=== PATIENT | male | born 1995 | race African-American/Black ===

== ENCOUNTER 2017-06-20 21:16 | Inpatient (IN) | payer OTHER ==
[~2017-06-20] VITALS: Ht 182.9 cm; Wt 106.6 kg
[2017-06-20 21:36] LABS: BASOPHIL (%) 0.6 % (0-1); BASOPHIL COUNT 0.1 K/uL (0-0.1); EOSINOPHIL (%) 0.6 % (0-5); EOSINOPHIL COUNT 0.1 K/uL (0-0.3); HEMATOCRIT 40.5 % (38.0-50.0); HEMOGLOBIN 14.1 G/DL (12.5-16.6); IMMATURE GRANULOCYTE (%) 0.5 % (0.0-0.7); LYMPHOCYTE (%) 31.1 % (15-42); MCH 33.5 PG (29.0-34.0); MCHC 34.8 G/DL (30.0-36.0); MCV 96.2 FL (86-99); MONOCYTE (%) 5.9 % (3-12); NEUTROPHIL (%) 61.3 % (45-76); NEUTROPHIL COUNT 9.9 K/uL (1.8-6.4); PLATELET COUNT 302 K/uL (156-360); RBC DIS.WIDTH-CV 11.2 % (11.8-14.6); RBC DIS.WIDTH-SD 39.3 % (39-53); RED BLOOD COUNT 4.21 M/uL (4.00-5.50); WHITE BLOOD COUNT 16.2 K/uL (4.1-10.2)
[2017-06-20 21:48] LABS: AMYLASE 61 IU/L (1-118); CHLORIDE 104 mEq/L (99-109); POTASSIUM 3.2 mEq/L (3.7-5.4); SODIUM 139 mEq/L (136-147)
[2017-06-20 21:49] LABS: GLUCOSE 163 mg/dL (70-99)
[2017-06-20 21:53] LABS: CREATININE 1.2 mg/dL (0.6-1.3); SERUM ETHYL ALCOHOL < 10 mg/dL
[2017-06-20 21:54] LABS: UREA NITROGEN (BUN) 9 mg/dL (9-23)
[2017-06-20 21:55] LABS: GFR ESTIMATE (CALCULATED) > 59 mL/min/ (58.99-99999)
[2017-06-20 21:56] LABS: LIPASE 24 U/L (1.0-51.0)
[2017-06-20 23:30] VITALS: BP 161/92; BP 165/83
[2017-06-21] VITALS (17 sets, daily range): BP systolic 104–172; BP diastolic 66–101
[2017-06-21 05:52] LABS: HEMATOCRIT 37.1 % (38.0-50.0); HEMOGLOBIN 12.8 G/DL (12.5-16.6); MCH 33.7 PG (29.0-34.0); MCHC 34.5 G/DL (30.0-36.0); MCV 97.6 FL (86-99); PLATELET COUNT 254 K/uL (156-360); RBC DIS.WIDTH-CV 11.4 % (11.8-14.6); RBC DIS.WIDTH-SD 41.1 % (39-53); WHITE BLOOD COUNT 18.3 K/uL (4.1-10.2)
[2017-06-21 06:15] LABS: ALBUMIN 4.1 G/DL (3.2-4.8); ALKALINE PHOSPHATASE 60 IU/L (3-129); ALT (GPT) 250 IU/L (3-49); AST (GOT) 202 IU/L (2-34); CHLORIDE 104 MEQ/L (99-109); GFR ESTIMATE (CALCULATED) > 59 mL/min/ (58.99-99999); GLUCOSE 142 mg/dL (70-99); SODIUM 140 MEQ/L (136-147); TOTAL BILIRUBIN 0.4 MG/DL (0.0-1.0); TOTAL PROTEIN 6.7 G/DL (6.4-8.3); UREA NITROGEN (BUN) 7 mg/dL (9-23)
[2017-06-21 06:27] LABS: POTASSIUM 5.1 MEQ/L (3.7-5.4)
[2017-06-22] VITALS (7 sets, daily range): BP systolic 126–182; BP diastolic 66–87
[2017-06-22 16:35] LABS: HEMATOCRIT 32.7 % (38.0-50.0); HEMOGLOBIN 11.2 G/DL (12.5-16.6); MCH 32.9 PG (29.0-34.0); MCHC 34.3 G/DL (30.0-36.0); MCV 96.2 FL (86-99); RBC DIS.WIDTH-CV 11.1 % (11.8-14.6); RBC DIS.WIDTH-SD 39.2 % (39-53); WHITE BLOOD COUNT 11.5 K/uL (4.1-10.2)
[2017-06-22 17:30] LABS: PLAT.SUFFICIENCY ADEQUATE; PLATELET COUNT 223 K/uL (156-360)
[2017-06-23 04:45] VITALS: BP 136/76
[2017-06-23 08:16] VITALS: BP 138/69
[2017-06-23 11:52] VITALS: BP 128/74
[2017-06-23 16:24] VITALS: BP 135/81
[2017-06-24 00:10] VITALS: BP 164/70
[2017-06-24 04:35] VITALS: BP 120/73
[2017-06-24 08:15] VITALS: BP 124/82
[2017-06-24 12:19] VITALS: BP 126/89
[2017-06-24 16:30] VITALS: BP 118/76
[2017-06-24 19:30] VITALS: BP 139/80
[2017-06-25 01:06] VITALS: BP 138/93
[2017-06-25 05:08] VITALS: BP 133/69
[2017-06-25 08:49] VITALS: BP 159/75
[2017-06-25] MEDS ORDERED: ENDOCET 5-3251 EACH PO (12:15)
[2017-06-25] MEDS ORDERED: DOCUSATE SODIU100 MG PO (12:15)
[2017-06-25 15:32] VITALS: BP 152/80
[2017-06-26 00:20] VITALS: BP 130/78
[2017-06-26 08:44] VITALS: BP 132/71
== END 2017-06-26 12:26 | disposition home or self-care (01) | DRG 199 ==
LOC: TRA 21:16 → 3EAST 22:24 → EDOF 22:24 → ENRESERV 22:24 → 4WEST 23:20 → ENRESERV 06-21 13:37 → 3EAST 06-21 15:27
PROVIDERS: Emergency Medicine; Surgery
PROC: 0W9900Z Drainage of Right Pleural Cavity with Drainage Device, Open Approach (ICD-10-PCS; principal; 2017-06-20)
DX: S27.1XXA Traumatic hemothorax, initial encounter (principal); S21.94 Puncture wound with foreign body of unspecified part of thorax; R00.0 Tachycardia, unspecified; S27.329A Contusion of lung, unspecified, initial encounter; W34.00XA Accidental discharge from unspecified firearms or gun, initial encounter; J96.90 Respiratory failure, unspecified, unspecified whether with hypoxia or hypercapnia; Y92.9 Unspecified place or not applicable; S21.301A Unspecified open wound of right front wall of thorax with penetration into thoracic cavity, initial encounter
CPT/HCPCS: 71010; 71045; 71046; 71275; 74174; 80048; 80053; 81003; 82150; 83690; 85025; 85027; 86850; 86900; 86901; 86920; 87641; G0480; J0690; J1650; J2270; J7030

== ENCOUNTER 2017-09-02 08:11 | Day surgery (SDC) | payer OTHER ==
[~2017-09-02] VITALS: Ht 177.8 cm; Wt 102.1 kg
[~2017-09-02 08:11] MED LIST: DOCUSATE SODIU100 MG PO; ENDOCET 5-3251 EACH PO
[2017-09-02 08:39] VITALS: BP 130/96
[2017-09-02] MEDS ORDERED: NORCO 5/3251 TABLET PO (11:32)
[2017-09-02 12:41] VITALS: BP 130/69
[2017-09-02 13:37] VITALS: BP 129/67
== END 2017-09-02 13:45 | disposition home or self-care (01) ==
LOC: SDC 08:11
DX: M79.5 Residual foreign body in soft tissue (principal); W34.00XS Accidental discharge from unspecified firearms or gun, sequela; Z87.891 Personal history of nicotine dependence
CPT/HCPCS: 76000; 88300; J0330; J0690; J1100; J1170; J2250; J2405; J2710; J3010; S0020